=== PATIENT | male | born 1985 | race Caucasian/White ===

== ENCOUNTER → 2017-06-01 | Outpatient (CLI) | payer BC, OTHER | LOC: CIMAGING 16:12 | PROVIDERS: ATTEND Family Medicine | DX: Q67.8 Other congenital deformities of chest (principal) ==

== ENCOUNTER 2017-12-19 20:39 | Emergency (ER) | payer OTHER ==
--- NOTE | 2017-12-19 20:52 | EDPHY ---
H & P Time Seen by Provider: 12/19/17 20:43 HPI/ROS: CHIEF COMPLAINT: Altered mental status HISTORY OF PRESENT ILLNESS: History from EMS, patient is nonverbal. He was found face down on the sidewalk without any evidence of trauma surrounded by alcohol. He got more agitated and then got 5 mg of Haldol intramuscular. Pre-hospital glucose was normal. Further history and review of systems unobtainable as the patient is nonverbal on arrival. PAST MEDICAL HISTORY: Unknown, nonverbal Social history: Was on scene with alcohol, but unknown if ingested. General Appearance: Patient is sleepy, some spontaneous movement, nonverbal. Eyes: No scleral icterus. Pupils 3 mm reactive. ENT, Mouth: Normal mucous membranes. No tongue laceration or abrasion. Respiratory: Normal respiratory effort, breath sounds equal, lungs are clear to auscultation. Cardiovascular: Regular rate and rhythm. Gastrointestinal: Abdomen is soft and non tender. Neurological: Sleepy but does move extremities, does not respond to questions. Skin: Warm and dry, no rashes. No lacerations or abrasions. Musculoskeletal: No spinal step-off, no extremity deformity. Psychiatric: Unable on arrival, nonverbal Emergency Department course/MDM: Labs to include electrolytes and ethanol. Placed on a monitor, plan for serial examinations. 2129: ethanol 497. 2199: signed out to Wendy plan serial exams until stable for discharge. (Bishop Owen) Constitutional: Initial Vital Signs Temperature (C) 36.5 C 12/19/17 20:53 Heart Rate 88 12/19/17 20:53 Respiratory Rate 20 12/19/17 20:53 Blood Pressure 135/93 H 12/19/17 20:53 O2 Sat (%) 92 12/19/17 20:53 O2 Delivery Mode Room Air Allergies/Adverse Reactions: Unable to Assess Allergy (Unverified 12/19/17 20:52) Home Medications: Medication Instructions Recorded Unobtainable 12/19/17 Medical Decision Making ED Course/Re-evaluation: 6:02 a.m.- Patient was stable throughout my shift. He became more awake and alert. He eventually sobered and was able to walk with a steady gait without any complaints. He will be discharged home. He lives in [place] and will take a taxi there. (Marybel Nguyen) - Data Points Laboratory Results: Laboratory Results 12/19/17 20:50 12/19/17 20:50 12/19/17 12/19/17 20:50 20:50 WBC 6.17 10^3/uL 10^3/uL (3.80-9.50) RBC 5.11 10^6/uL 10^6/uL (4.40-6.38) Hgb 15.6 g/dL g/dL (13.7-17.5) Hct 46.1 % % (40.0-51.0) MCV 90.2 fL fL (81.5-99.8) MCH 30.5 pg pg (27.9-34.1) MCHC 33.8 g/dL g/dL (32.4-36.7) RDW 12.7 % % (11.5-15.2) Plt Count 253 10^3/uL 10^3/uL (150-400) MPV 10.1 fL fL (8.7-11.7) Neut % (Auto) 56.5 % % (39.3-74.2) Lymph % (Auto) 35.2 % % (15.0-45.0) [place] % (Auto) 5.7 % % (4.5-13.0) Eos % (Auto) 1.0 % % (0.6-7.6) Baso % (Auto) 1.1 % % (0.3-1.7) Nucleat RBC Rel Count 0.0 % % (0.0-0.2) Absolute Neuts (auto) 3.49 10^3/uL 10^3/uL (1.70-6.50) Absolute Lymphs (auto) 2.17 10^3/uL 10^3/uL (1.00-3.00) Absolute Monos (auto) 0.35 10^3/uL 10^3/uL (0.30-0.80) Absolute Eos (auto) 0.06 10^3/uL 10^3/uL (0.03-0.40) Absolute Basos (auto) 0.07 10^3/uL 10^3/uL (0.02-0.10) Absolute Nucleated RBC 0.00 10^3/uL 10^3/uL (0-0.01) Immature Gran % 0.5 % % (0.0-1.1) Immature Gran # 0.03 10^3/uL 10^3/uL (0.00-0.10) Sodium 151 mEq/L H mEq/L (135-145) Potassium 3.5 mEq/L mEq/L (3.3-5.0) Chloride 113 mEq/L H mEq/L (97-110) Carbon Dioxide 25 mEq/l mEq/l (22-31) Anion Gap 13 mEq/L mEq/L (6-14) BUN 10 mg/dL mg/dL (7-23) Creatinine 0.8 mg/dL mg/dL (0.7-1.3) Estimated GFR > 60 Glucose 103 mg/dL H mg/dL (70-100) Calcium 9.6 mg/dL mg/dL (8.5-10.4) Acetaminophen < 10 mcg/mL L mcg/mL (10-30) Ethyl Alcohol 497 mg/dL H* mg/dL (0-10) Departure - Departure Disposition: Home, Routine, Self-Care Clinical Impression: Alcoholic intoxication Qualifiers: Complication of substance-induced condition: uncomplicated Qualified Code(s): F10.920 - Alcohol use, unspecified with intoxication, uncomplicated Condition: Good Instructions: Alcohol Intoxication (ED) Referrals: Sadi Tucker MD [Medical Doctor] - As per Instructions
[2017-12-19 21:04] LABS: PLATELET COUNT 253 10^3/uL (150-400)
[2017-12-20 06:33] VITALS: BP 109/68
== END 2017-12-20 06:33 | disposition home or self-care (01) ==
LOC: EDUNIT#
DX: F10.920 Alcohol use, unspecified with intoxication, uncomplicated (principal)
CPT/HCPCS: G0480